=== PATIENT | female | born 1985 | race African-American/Black ===

== ENCOUNTER 2016-06-25 17:59 | Emergency (ER) | payer OTHER ==
[~2016-06-25] VITALS: Ht 157.5 cm; Wt 59.0 kg
[2016-06-25 18:08] VITALS: BP 128/92
--- NOTE | 2016-06-25 20:45 | NUR ---
PATIENT TO ER BED 3
--- NOTE | 2016-06-25 20:59 | NUR ---
30/F BIB FAMILY C/O NON RADIATING CHEST PAIN WITH DIZZINESS X2 WEEKS. DENIES N/V/D; SKIN IS PINK/WARM/DRY; AAOX4 WITH EVEN AND STEADY GAIT; LUNGS CLEAR BL; HR EVEN AND REGULAR; PT DENIES ANY FEVER, CP, SOB, OR COUGH AT THIS TIME; PATIENT STATES PAIN OF 0/10 AT THIS TIME; VSS; PATIENT POSITIONED FOR COMFORT; HOB ELEVATED; BEDRAILS UP X2; BED DOWN. ER MD MADE AWARE OF PT STATUS.
--- NOTE | 2016-06-25 21:30 | NUR ---
ERMD AT BEDSIDE EVALUATING PATIENT.
[2016-06-25] MEDS ORDERED: KETOROLAC 30 MG/ML VIAL IM ONE (21:45)
--- NOTE | 2016-06-25 23:35 | NUR ---
Patient discharged with v/s stable. Written and verbal after care instructions given and explained. Patient alert, oriented and verbalized understanding of instructions. Ambulatory with steady gait. All questions addressed prior to discharge. ID band removed. Patient advised to follow up with PMD. Rx of NAPROSYN 500MG given. Patient educated on indication of medication including possible reaction and side effects. Opportunity to ask questions provided and answered.
[2016-06-25 23:44] VITALS: BP 111/75
== END 2016-06-25 23:44 | disposition home or self-care (01) ==
LOC: MED 18:11
DX: R07.89 Other chest pain (principal); R42 Dizziness and giddiness; K21.9 Gastro-esophageal reflux disease without esophagitis
CPT/HCPCS: 36415; 71010; 80048; 81002; 81025; 85025; 93005; 96372; 99285; J1885